=== PATIENT | female | born 1950 | race Caucasian/White ===

== ENCOUNTER → 2016-11-30 | Outpatient (CLI) | payer BC, MEDICARE ==
--- NOTE | 2016-11-30 13:03 | MM ---
Reason for exam: screening (asymptomatic). Last mammogram was performed 1 year and 1 month ago. History: Patient is postmenopausal and history of other cancer. Physical Findings: A clinical breast exam by your physician is recommended on an annual basis and results should be correlated with mammographic findings. MG 3D Screening Mammo W/Cad Bilateral CC and MLO view(s) were taken. Prior study comparison: October 19, 2015, bilateral MG screening mammo w CAD. October 14, 2014, bilateral MG screening mammo w CAD. The breast tissue is heterogeneously dense. This may lower the sensitivity of mammography. There is no discrete abnormality. ASSESSMENT: Negative, BI-RAD 1 RECOMMENDATION: Routine screening mammogram of both breasts in 1 year.
== END | disposition home or self-care (01) ==
LOC: RADMAMWWP 06:51
PROVIDERS: ATTEND Obstetrics & Gynecology
DX: Z12.31 Encounter for screening mammogram for malignant neoplasm of breast (principal)
CPT/HCPCS: 77063; G0202

== ENCOUNTER → 2016-11-30 | Outpatient (CLI) | payer BC, MEDICARE ==
--- NOTE | 2016-11-30 09:37 | BD ---
EXAMINATION TYPE: MG DEXA axial skeleton. DATE OF EXAM: 11/30/2016 7:25 AM COMPARISON: Prior DEXA bone scan October 04, 2011 CLINICAL HISTORY: Postmenopausal female Height: 64 IN Weight: 119 LB FRAX RISK QUESTIONS: Alcohol (3 or more units per day): NO Family History (Parent hip fracture): NO Glucocorticoids (More than 3mos): NO (Ex: prednisone, prednisolone, methylprednisolone, dexamethasone, and hydrocortisone). History of Fracture in Adulthood: YES LT FOOT AGE 61 Secondary Osteoporosis: 1. Type 1 Diabetes: NO 2. Hyperthyroidism: NO 3. Menopause before 45: NO 4. Malnutrition: NO 5. Chronic liver disease: NO Rheumatoid Arthritis: NO Current Tobacco Use: NO RISK FACTORS HISTORY OF: Family History of Osteoporosis: YES MOTHER Active: YES Postmenopausal woman: AGE 54 MEDICATIONS: Additional Medications: CALCIUM, VIT D, ALLERGY MED, MUSCLE RELAXER EXAM MEASUREMENTS: Bone mineral densitometry was performed using the [employer] System. Bone mineral density as measured about the Lumbar spine is: ----- L1-L4(G/cm2): 1.019 T Score Values are as follows: ----- L2: -1.2 ----- L3: -1.7 ----- L4: -1.4 ----- L1-L4: -1.3 Bone mineral density has: Decreased -0.4% since study of: 10/04/2011 Bone mineral density about the R hip (g/cm2): 0.765 Bone mineral density about the L hip (g/cm2): 0.747 T Score values are as follows: -----R Neck: -2.0 -----L Neck: -2.1 -----R Intertrochanter: -1.9 -----L Intertrochanter: -2.2 Bone mineral density has: Decreased -5.3% since study of: 10/04/2011 IMPRESSION: Osteopenia (T Score between -2.5 and -1 as noted by T score values remains present in back and both h ips. Bone density is slightly decreased or diminished from prior exam particularly at level of hips. There remains slightly increased risk of fracture and the patient may be considered for treatment. Re -Screen 1-2 years. NOTE: T-SCORE=SD OF THE YOUNG ADULT MEAN.
== END | disposition home or self-care (01) ==
LOC: RADBDWWP 06:52
PROVIDERS: ATTEND Internal Medicine Geriatric Medicine
DX: M85.852 Other specified disorders of bone density and structure, left thigh (principal); M85.851 Other specified disorders of bone density and structure, right thigh; M85.88 Other specified disorders of bone density and structure, other site
CPT/HCPCS: 77063; 77080

== ENCOUNTER → 2017-02-11 | Outpatient (CLI) | payer MEDICARE ==
--- NOTE | 2017-02-12 10:54 | ECHOF ---
Referral Reason:I50.1 Left heart failure MEASUREMENTS -------- HEIGHT: 162.6 cm WEIGHT: 54.9 kg BP: 148/65 RVIDd: 3.3 cm (< 3.3) IVSd: 0.7 cm (0.6 - 1.1) LVIDd: 3.5 cm (3.9 - 5.3) LVPWd: 0.9 cm (0.6 - 1.1) IVSs: 1.4 cm LVIDs: 1.9 cm LVPWs: 1.3 cm LA Diam: 2.9 cm (2.7 - 3.8) LAESV Index (A-L): 28.13 ml/m Ao Diam: 2.6 cm (2.0 - 3.7) AV Cusp: 1.5 cm (1.5 - 2.6) LA Diam: 2.7 cm (2.7 - 3.8) MV EXCURSION: 13.818 mm (> 18.000) MV EF SLOPE: 81 mm/s (70 - 150) EPSS: 0.2 cm MV E Edward: 0.71 m/s MV DecT: 183 ms MV A Edward: 0.69 m/s MV E/A Ratio: 1.04 RAP: 5.00 mmHg RVSP: 26.90 mmHg FINDINGS -------- Sinus rhythm. This was a technically good study. Left ventricular wall thickness is normal. Overall left ventricular systolic function is normal with, an EF between 55 - 60 %. The right ventricle is normal in size. Normal LA size by volume 22+/-6 ml/m2. The right atrium is normal in size. Aortic valve is trileaflet and is mildly thickened. There is mild aortic regurgitation. The mitral valve leaflets are mildly thickened. Mild mitral annular calcification present. There is trace mitral regurgitation. Mild tricuspid regurgitation present. The right ventricular systolic pressure, as measured by Doppler, is 26.90mmHg. Pulmonic valve appears structurally normal. The aortic root size is normal. Normal inferior vena cava with normal inspiratory collapse consistent with estimated right atrial pressure of 5 mmHg. There is no pericardial effusion. CONCLUSIONS -------- 1. Sinus rhythm. 2. The mitral valve leaflets are mildly thickened. 3. Mild mitral annular calcification present. 4. There is trace mitral regurgitation. 5. Mild tricuspid regurgitation present. 6. The right ventricular systolic pressure, as measured by Doppler, is 26.90mmHg. 7. Pulmonic valve appears structurally normal. 8. The aortic root size is normal. 9. Normal inferior vena cava with normal inspiratory collapse consistent with estimated right atrial pressure of 5 mmHg. 10. There is no pericardial effusion. 11. This was a technically good study. 12. Left ventricular wall thickness is normal. 13. Overall left ventricular systolic function is normal with, an EF between 55 - 60 %. 14. The right ventricle is normal in size. 15. Normal LA size by volume 22+/-6 ml/m2. 16. The right atrium is normal in size. 17. Aortic valve is trileaflet and is mildly thickened. 18. There is mild aortic regurgitation. SENIOR HADOOP DEVELOPER: Melanie Temple RDCS
== END | disposition home or self-care (01) ==
LOC: RADECHMAIN 16:18
PROVIDERS: ATTEND Internal Medicine Geriatric Medicine
DX: I08.3 Combined rheumatic disorders of mitral, aortic and tricuspid valves (principal)
CPT/HCPCS: 93306

== ENCOUNTER 2017-06-18 08:06 | Day surgery (SDC) | payer MEDICARE ==
[2017-06-12 09:32] VITALS: BMI 20.7
[~2017-06-18 08:06] MED LIST: LACTATED RINGERS 1,000 ML IV SCH; LIDOCAINE 1% 20 ML VIAL (10MG/ML) FOR IV START INTRADERMA PRN
[2017-06-18] MEDS: CYCLOPENTOLATE 1% OPHTH SOLN 2 ML BTL OP ONE ×3 (08:35→08:47)
[2017-06-18 08:36] VITALS: RESP 18; TEMP 97.2
[2017-06-18] MEDS: PHENYLEPHRINE 10% OPHTH DROPS 5 ML BTL OP ONE ×5 (08:37→08:49)
[2017-06-18] MEDS: KETOROLAC 0.5% OPHTH DROPS 3 ML BTL OP ONE ×4 (08:39→08:51)
[2017-06-18] MEDS ORDERED: LACTATED RINGERS 1,000 ML IV ONE (08:39)
[2017-06-18] MEDS ORDERED: PROPOFOL 10 MG/ML 20 ML VIAL IV ONE (09:49)
[2017-06-18] MEDS ORDERED: EPINEPHrine (PF) 0.5 ML in BALANCED SALT IRRIG SOLN COMB2 500 ML IRRIGATION ONE (09:51)
[2017-06-18] MEDS ORDERED: BALANCED SALT IRRIG SOLN COMB2 15 ML IRRIG.SOLN INTRAOCULA ONE (09:53)
[2017-06-18] MEDS ORDERED: HYALURONATE SODIUM INTRAOCULAR 1 EACH SYRINGE (10MG/ML) INTRAOCULA ONE (09:53)
--- NOTE | 2017-06-18 10:12 | P.OP ---
Date of Procedure: 06/18/17 Preoperative Diagnosis: Postoperative Diagnosis: Procedure(s) Performed: PREOPERATIVE DIAGNOSIS: Cataract, left eye. POSTOPERATIVE DIAGNOSIS: Cataract, left eye. OPERATION: Phacoemulsification cataract, left eye. DESCRIPTION OF PROCEDURE: The patient was taken to the preoperative holding area. Intravenous Propofol was given so as to bring about adequate sedation. The following mixture was given for local anesthesia: 5 mL of 2% lidocaine, 5 mL of 0.75% Marcaine, and 1 mL of Wydase. Approximately 4 mL was injected in the retrobulbar space of the surgical eye. Additional 1 mL was then directed to the temporal area of the surgical eye. This was performed to allow adequate neurological block of the facial muscles. The patient was revived and then taken into the operative room. The patient was prepped and draped in the usual sterile manner for the operative eye. A lid speculum was put into position. The conjunctiva was resected back from the limbus in the 12 o'clock position. Bleeding was controlled with electrocautery. A #69 blade was then used and a half-thickness scleral incision approximately 1-mm posterior to the limbus was made on bare sclera. This was shelved in the clear cornea using a crescent knife. Next a 15-degree blade was used to make a stab incision at the 3 o' clock position at the corneolimbal interface. Keratome blade was then used and the superior wound was extended into the anterior chamber. Viscoelastic was injected into the anterior chamber and to maintain its form. Next, a cystotome was used and a continuous anterior capsulotomy was made without difficulty. Hydrodissection using a blunt cannula and BSS was performed. Phaco probe was then employed and a groove extending from 12 to 6 o'clock in the lens was created. A Jean wand was used through the stab incision so as to perform a divide and conquer technique. Next an irrigation aspiration probe was utilized and any residual cortex was removed from the eye. Again, viscoelastic was injected into the anterior chamber. An [employer] posterior chamber lens implant was placed in the cartridge and injected into the anterior chamber without difficulty. The [employer] hook was utilized to spin the lens into position and this was again performed without any difficulty. The irrigation and aspiration probe was again employed and any residual viscoelastic was removed from the eye. Then BSS was injected into the limbal stab incision and the anterior chamber re-inflated. The conjunctiva was reapproximated using electrocautery. One drop of 0.25% Timoptic was placed over the corneal along with TobraDex ophthalmic ointment. Two sterile patches and a Lorenzo eye shield were taped into position. The patient was transported to the recovery room in stable condition. Implants: Pathology: none sent Condition: stable Disposition: same day Indications for Procedure: Operative Findings: Description of Procedure:
[2017-06-18 10:34] VITALS: BP 126/68; PULSE 55
[2017-06-18] MEDS ORDERED: TIMOLOL 0.5% OPHTH SOLN (PF) 0.2 ML DROPERETTE OP ONE (23:00)
[2017-06-18] MEDS ORDERED: BUPIVACAINE (PF) 0.75% 5 ML, LIDOCAINE 4% (PF) 5 ML, HYALURONIDASE, HUMAN RECOMB 150 UNIT MISCELLANE ONE ×3 (23:00)
[2017-06-18] MEDS ORDERED: GENTAMICIN/PREDNISOL AC OPHTH OINT 3.5GM OPHTHALMIC ONE (23:00)
== END 2017-06-18 10:49 | disposition home or self-care (01) ==
LOC: OR 08:06
PROVIDERS: ATTEND Ophthalmology
DX: H25.12 Age-related nuclear cataract, left eye (principal); G47.33 Obstructive sleep apnea (adult) (pediatric); K21.9 Gastro-esophageal reflux disease without esophagitis; J30.2 Other seasonal allergic rhinitis; Z79.899 Other long term (current) drug therapy; Z88.0 Allergy status to penicillin; Z88.2 Allergy status to sulfonamides
CPT/HCPCS: 66984; V2632; V2788; J2001; J3470; J0171; J2704

== ENCOUNTER → 2017-11-28 | Outpatient (CLI) | payer MEDICARE ==
--- NOTE | 2017-11-28 22:33 | MR ---
EXAMINATION TYPE: MR lumbar spine wo/w con DATE OF EXAM: 11/28/2017 COMPARISON: CT abdomen and pelvis October 09, 2016 HISTORY: LBP into buttocks x 1 year, no trauma/surgery per patient. Sciatica unspecified site per ord er. TECHNIQUE: Multiplanar, multisequence images of the lumbar spine is performed without and with IV contrast, util izing 5.5 mL intravenous Gadavist FINDINGS: Sagittal images of the lumbar spine show vertebral body heights to remain satisfactory. The re is persistent grade 1 anterolisthesis of L4 on L5 measured 8 mm from posterior vertebral body jake in on sagittal image 7. Multilevel disc desiccation is present. There is moderate to advanced disc sp vanessa narrowing L4-L5 level redemonstrated. Multilevel posterior disc herniations are seen on sagittal images. The conus medullaris is normal in position and signal ending mid L1 level. There is heterogen eous endplate changes L4-L5 level. No significant spurring is seen. No suspicious enhancement is note d. Axial images at T12-L1 level shows mild facet degenerative changes and ligament flavum hypertrophy ef facing posterior lateral thecal sac on axial image 30. Bilateral neural foramina are patent. Axial images at the L1-L2 level show mild broad disc bulge mildly effacing the anterior thecal sac. T he bilateral neural foramina are patent. Axial images at L2-L3 level shows broad-based posterior disc protrusion mildly facing anterior thecal sac. Bilateral neural foramina are patent. Axial images at L3-L4 level mild/moderate facet degenerative changes and ligamentum flavum hypertroph y effacing posterior lateral thecal sac. There is mild broad disc bulge effacing anterior thecal sac on axial image 15. There is mild left greater than right anterior inferior neural foraminal narrowing at this level identified. Axial images at the L4-L5 level show spondylolisthesis causing pseudodisc herniation as well as broad disc bulge. There is moderate to advanced facet degenerative changes bilaterally. Most prominent spi nal canal stenosis seen at this level on sagittal image 9. There is moderate to advanced right and mi [id number] left-sided neural foraminal narrowing at this level seen. Encroachment on right L4 ner ve is felt present on sagittal image 11 and axial image 9. Axial images at L5-S1 level show moderate left greater than right facet degenerative changes. There i s central disc protrusion minimally effacing the anterior thecal sac. Bilateral neural foramina are p atent. No suspicious retroperitoneal findings are seen. No suspicious enhancement is noted. IMPRESSION: Multilevel degenerative changes in the lumbar spine as detailed above, most prominent fin dings L4-L5 level where spondylolisthesis causes most prominent spinal canal stenosis and along with degenerative changes there is felt to effacement of the right L4 nerve.
== END | disposition home or self-care (01) ==
LOC: RADMRIMAIN 19:59
PROVIDERS: ATTEND Internal Medicine Geriatric Medicine
DX: M48.061 Spinal stenosis, lumbar region without neurogenic claudication (principal); M43.16 Spondylolisthesis, lumbar region; M47.817 Spondylosis without myelopathy or radiculopathy, lumbosacral region
CPT/HCPCS: 82565; 72158; 36415; A9581

== ENCOUNTER → 2017-12-13 | Outpatient (CLI) | payer MEDICARE, OTHER ==
--- NOTE | 2017-12-16 11:02 | MM ---
Reason for exam: screening (asymptomatic). Last mammogram was performed 1 year ago. History: Patient is postmenopausal and history of other cancer. Physical Findings: A clinical breast exam by your physician is recommended on an annual basis and results should be correlated with mammographic findings. MG 3D Screening Mammo W/Cad Bilateral CC and MLO view(s) were taken. Prior study comparison: November 30, 2016, bilateral MG 3d screening mammo w/cad. October 19, 2015, bilateral MG screening mammo w CAD. The breast tissue is heterogeneously dense. This may lower the sensitivity of mammography. There is no discrete abnormality. ASSESSMENT: Negative, BI-RAD 1 RECOMMENDATION: Routine screening mammogram of both breasts in 1 year.
== END | disposition home or self-care (01) ==
LOC: RADMAMWWP 06:53
PROVIDERS: ATTEND Internal Medicine Geriatric Medicine
DX: Z12.31 Encounter for screening mammogram for malignant neoplasm of breast (principal)
CPT/HCPCS: 77063; 77067

== ENCOUNTER → 2018-07-25 | Outpatient (CLI) | payer MEDICARE ==
--- NOTE | 2018-07-25 18:48 | XR ---
EXAMINATION TYPE: XR lumbar spine with bend/flex DATE OF EXAM: 07/25/2018 COMPARISON: NONE HISTORY: Back pain TECHNIQUE: 7 views FINDINGS: Multiple film exam including obliques and flexion and extension views show anterior subluxa tion of L4 in relation L5. There is no spondylolysis. There is narrowing of L4-5 disc space. There is no compression fracture. Sacroiliac joints appear intact. The subluxation is 8 mm in extension and 1 0 mm in flexion. IMPRESSION: There is only 2 mm movement of the first-degree L4-5 spondylolisthesis with the flexion-e xtension views. Subluxation is stable compared to CT scan of 10/09/2016.
--- NOTE | 2018-07-25 18:49 | XR ---
EXAMINATION TYPE: XR chest 2V DATE OF EXAM: 07/25/2018 COMPARISON: 02/13/2010 HISTORY: Preop TECHNIQUE: Frontal and lateral views of the chest are obtained. FINDINGS: Heart and mediastinum are normal. Lungs are clear. Costophrenic angles are clear. Bony tho rax is intact. IMPRESSION: Normal chest. No change.
== END | disposition home or self-care (01) ==
LOC: RADXRMAIN 16:33
PROVIDERS: ATTEND Neurological Surgery
DX: M43.16 Spondylolisthesis, lumbar region (principal)
CPT/HCPCS: 71046; 72114

== ENCOUNTER → 2018-12-16 | Outpatient (CLI) | payer MEDICARE ==
--- NOTE | 2018-12-16 11:01 | BD ---
EXAMINATION TYPE: Axial Bone Density DATE OF EXAM: 12/16/2018 COMPARISON: 2017 CLINICAL HISTORY: screening osteoporosis Height: 5'4 Weight: 131 FRAX RISK QUESTIONS: History of Fracture in Adulthood: y Secondary Osteoporosis: RISK FACTORS HISTORY OF: Surgery to Spine/): L4-L5 When: 2018 Family History of Osteoporosis: Y MEDICATIONS: Additional Medications: allergy, incontinence Additional History: EXAM MEASUREMENTS: Bone mineral densitometry was performed using the [employer] System. Bone mineral density about the R hip (g/cm2): 0.771 Bone mineral density about the L hip (g/cm2): 0.742 T Score values are as follows: -----R Neck: -2.1 -----L Neck: -1.9 -----R Total: -1.6 -----L Total: -1.6 Bone mineral density has: Increased 0.5% since study of: 11/30/2016 Bone mineral density about the L Wrist (g/cm2): 0.484 T Score values are as follows: -----Dist. R+U: -3.3 -----Prox. R+U: -2.2 -----Radius total: -3.2 IMPRESSION: Osteoporosis (T Score less than -2.5). There is increased fracture risk and therapy is usually indicated based on age. Re-Screen 1-2 years. NOTE: T-SCORE=SD OF THE YOUNG ADULT MEAN.
--- NOTE | 2018-12-17 08:37 | MM ---
Reason for exam: screening (asymptomatic). Last mammogram was performed 1 year ago. History: Patient is postmenopausal and history of other cancer. Physical Findings: A clinical breast exam by your physician is recommended on an annual basis and results should be correlated with mammographic findings. MG 3D Screening Mammo W/Cad Bilateral CC and MLO view(s) were taken. Prior study comparison: December 13, 2017, bilateral MG 3d screening mammo w/cad. November 30, 2016, bilateral MG 3d screening mammo w/cad. The breast tissue is heterogeneously dense. This may lower the sensitivity of mammography. No suspicious abnormality. No significant changes when compared with prior studies. ASSESSMENT: Negative, BI-RAD 1 RECOMMENDATION: Routine screening mammogram of both breasts in 1 year.
== END ==
LOC: RADMAMWWP 08:15
PROVIDERS: ATTEND Internal Medicine Geriatric Medicine
DX: Z12.31 Encounter for screening mammogram for malignant neoplasm of breast (principal); M81.0 Age-related osteoporosis without current pathological fracture
CPT/HCPCS: 77063; 77067; 77080

== ENCOUNTER → 2019-04-21 | Outpatient (CLI) | payer MEDICARE | END | disposition home or self-care (01) | LOC: LABWHC1 08:48 | PROVIDERS: ATTEND Otolaryngology | DX: L50.0 Allergic urticaria (principal); J30.89 Other allergic rhinitis; B44.89 Other forms of aspergillosis | CPT/HCPCS: 36415; 86001 ==

== ENCOUNTER → 2019-08-26 | Outpatient (CLI) | payer MEDICARE ==
--- NOTE | 2019-08-26 13:28 | XR ---
EXAMINATION TYPE: XR lumbar spine with bend/flex DATE OF EXAM: 08/26/2019 CLINICAL HISTORY: Fusion at L4-L5 last year with back pain for one week. TECHNIQUE: Frontal, oblique, lateral neutral, lateral flexion, and lateral extension images of the penelope mbar spine were obtained. COMPARISON: X-ray of the lumbar spine dated 07/17/2018. FINDINGS: There are 5 lumbar type vertebral bodies. Surgical fixation of L4-L5 is seen with pedicular screws, fixation rods and intervertebral disc age. Surgical excision of the posterior elements at th jen levels. Oblique images demonstrate no gross evidence of pars interarticularis defect. Vertebral b joaquín heights are overall maintained. Small osteophytes of the lumbar spine particularly at L1-L2. In n eutral on the lateral view there is grade 1 anterolisthesis of L4 on L5, surgically fixated. No bowling e is seen in flexion or extension. Intervertebral disc space narrowing is noted at L5-S1. IMPRESSION: 1. No acute fracture is seen in the lumbar spine. 2. Grade 1 anterolisthesis with surgical fixation at L4-L5. 3. Mild multilevel degenerative disc disease of the lumbar spine.
== END | disposition home or self-care (01) ==
LOC: RADXRMAIN 12:29
PROVIDERS: ATTEND Internal Medicine Geriatric Medicine
DX: M43.16 Spondylolisthesis, lumbar region (principal); M51.36 Other intervertebral disc degeneration, lumbar region; Z98.1 Arthrodesis status
CPT/HCPCS: 72114

== ENCOUNTER → 2020-01-05 | Outpatient (CLI) | payer MEDICARE ==
--- NOTE | 2020-01-06 12:11 | MM ---
Reason for exam: screening (asymptomatic). Last mammogram was performed 1 year and 1 month ago. History: Patient is postmenopausal and history of other cancer. Physical Findings: A clinical breast exam by your physician is recommended on an annual basis and results should be correlated with mammographic findings. MG 3D Screening Mammo W/Cad Bilateral CC and MLO view(s) were taken. Prior study comparison: December 16, 2018, bilateral MG 3d screening mammo w/cad. December 13, 2017, bilateral MG 3d screening mammo w/cad. The breast tissue is heterogeneously dense. This may lower the sensitivity of mammography. No suspicious abnormality. No significant changes when compared with prior studies. ASSESSMENT: Negative, BI-RAD 1 RECOMMENDATION: Routine screening mammogram of both breasts in 1 year.
== END | disposition home or self-care (01) ==
LOC: RADMAMWWP 07:38
PROVIDERS: ATTEND Internal Medicine Geriatric Medicine
DX: Z12.31 Encounter for screening mammogram for malignant neoplasm of breast (principal)
CPT/HCPCS: 77063; 77067

== ENCOUNTER → 2021-01-25 | Outpatient (CLI) | payer MEDICARE ==
--- NOTE | 2021-01-27 11:03 | MM ---
Reason for exam: screening (asymptomatic). Last mammogram was performed 1 year and 1 month ago. History: Patient is postmenopausal and history of other cancer. Physical Findings: A clinical breast exam by your physician is recommended on an annual basis and results should be correlated with mammographic findings. MG 3D Screening Mammo W/Cad Bilateral CC and MLO view(s) were taken. Prior study comparison: January 05, 2020, bilateral MG 3d screening mammo w/cad. December 16, 2018, bilateral MG 3d screening mammo w/cad. The breast tissue is extremely dense which could obscure a lesion on mammography. No significant changes when compared with prior studies. ASSESSMENT: Benign, BI-RAD 2 RECOMMENDATION: Routine screening mammogram of both breasts in 1 year.
== END | disposition home or self-care (01) ==
LOC: RADMAMWWP 16:30
PROVIDERS: ATTEND Internal Medicine Geriatric Medicine
DX: Z12.31 Encounter for screening mammogram for malignant neoplasm of breast (principal); Z78.0 Asymptomatic menopausal state
CPT/HCPCS: 77063; 77067

== ENCOUNTER → 2021-11-07 | Outpatient (CLI) | payer MEDICARE ==
[~2021-11-07] MED LIST changes: +CASIRIVIMAB (REGN10933) (EUA) 600 MG, IMDEVIMAB (REGN10987) (EUA) 600 MG in SODIUM CHLO... IVPB NR; -LACTATED RINGERS 1,000 ML IV SCH; -LIDOCAINE 1% 20 ML VIAL (10MG/ML) FOR IV START INTRADERMA PRN; +SODIUM CHLORIDE 0.9% 50 ML IVPB NR; +SODIUM CHLORIDE 0.9% 500 ML 500 ML in EMPTY BAG 1 BAG IV PRN
[2021-11-07 15:27] VITALS: RESP 16; TEMP 99.4
[2021-11-07 16:01] VITALS: BP 125/84; PULSE 82
== END ==
LOC: PROCWHC3 13:55
PROVIDERS: ATTEND Internal Medicine Geriatric Medicine
DX: U07.1 COVID-19 (principal); Z88.0 Allergy status to penicillin; Z88.2 Allergy status to sulfonamides
CPT/HCPCS: 96360; Q0244; M0243

== ENCOUNTER → 2022-03-06 | Outpatient (CLI) | payer MEDICARE ==
--- NOTE | 2022-03-06 22:27 | BD ---
EXAMINATION TYPE: Axial Bone Density DATE OF EXAM: 03/06/2022 CLINICAL HISTORY: 71 years year old Female. ICD-10 CODE: Z13.820 osteoporosis screening Height: 5 FT 4 1/4 IN Weight: 129 FRAX RISK QUESTIONS: Alcohol (3 or more units per day): NO Family History (Parent hip fracture): NO Glucocorticoids (More than 3mos): NO (Ex: prednisone, prednisolone, methylprednisolone, dexamethasone, and hydrocortisone). History of Fracture in Adulthood: YES Secondary Osteoporosis: 1. Type 1 Diabetes: NO 2. Hyperthyroidism: NO 3. Menopause before 45: NO 4. Malnutrition: NO 5. Chronic liver disease: NO Rheumatoid Arthritis: NO Current Tobacco Use: NO RISK FACTORS HISTORY OF: Surgery to Spine/Hip(right/left)/Wrist (right/left): LUMBAR SURG FUSION When: 2018 Family History of Osteoporosis: YES Active: YES Diet low in dairy products/other sources of calcium: NO Postmenopausal woman: YES Take estrogen and/or progesterone medications: NO Lost more than 2 inches in height since high school: NO Frequent falls: NO Poor Health: GOOD Hyperparathyroidism: NO Adrenal Insufficiency: NO MEDICATIONS: Additional Medications: ALLERGY MEDS, ACID REFLUX MEDS Additional History: EXAM MEASUREMENTS: Bone mineral density about the R hip (g/cm2): 0.708 Bone mineral density about the L hip (g/cm2): 0.715 T Score values are as follows: -----R Neck: -2.4 -----L Neck: -2.3 -----R Total: -2.1 -----L Total: -2.0 Bone mineral density has: DECREASED -7.1 % since study of: 2018 Bone mineral density about the L Wrist (g/cm2): 0.476 T Score values are as follows: -----Dist. R+U: -3.3 -----Prox. R+U: -2.7 -----Radius total: -3.3 Bone mineral density has: DECREASED -5.4 % since study of: 2019 FRAX%s: The graph provided illustrates a 20.5 % chance for a major osteoporotic fx and a 5.1 % chance for the hips probability for fx in 10 years time. IMPRESSION: Osteoporosis (T Score less than -2.5). There is increased fracture risk and therapy is usually indicated based on age. Re-Screen 1-2 years. NOTE: T-SCORE=SD OF THE YOUNG ADULT MEAN.
--- NOTE | 2022-03-08 08:47 | MM ---
Reason for exam: screening (asymptomatic). Last mammogram was performed 1 year and 1 month ago. History: Patient is postmenopausal and has history of other cancer at age 66. Physical Findings: A clinical breast exam by your physician is recommended on an annual basis and results should be correlated with mammographic findings. MG 3D Screening Mammo W/Cad Bilateral CC and MLO view(s) were taken. Prior study comparison: January 25, 2021, bilateral MG 3d screening mammo w/cad. January 05, 2020, bilateral MG 3d screening mammo w/cad. The breast tissue is heterogeneously dense. This may lower the sensitivity of mammography. No significant changes when compared with prior studies. ASSESSMENT: Benign, BI-RAD 2 RECOMMENDATION: Routine screening mammogram of both breasts in 1 year.
== END | disposition home or self-care (01) ==
LOC: RADMAMWWP 07:52
PROVIDERS: ATTEND Internal Medicine Geriatric Medicine
DX: Z12.31 Encounter for screening mammogram for malignant neoplasm of breast (principal); M81.0 Age-related osteoporosis without current pathological fracture; Z78.0 Asymptomatic menopausal state
CPT/HCPCS: 77063; 77067; 77080

== ENCOUNTER → 2023-03-28 | Outpatient (CLI) | payer MEDICARE ==
--- NOTE | 2023-03-29 06:48 | MM ---
Reason for Exam: Screening (asymptomatic). Last mammogram was performed 1 year(s) and 1 month(s) ago. Patient History: Menarche at age 13. First Full-Term at age 27. Postmenopausal. Other cancer, age 66. Risk Values: Lory 5 year model risk: 1.9%. NCI Lifetime model risk: 5.4%. Prior Study Comparison: 01/05/2020 Bilateral Screening Mammogram, [facility]. 01/25/2021 Bilateral Screening Mammogram, [facility]. 03/06/2022 Bilateral Screening Mammogram, [facility]. Tissue Density: The breast tissue is heterogeneously dense. This may lower the sensitivity of mammography. Findings: Analyzed By CAD. There is no suspicious group of microcalcifications or new suspicious mass in either breast. Overall Assessment: Negative, BI-RAD 1 Management: Screening Mammogram of both breasts in 1 year. . Patient should continue monthly self-breast exams. A clinical breast exam by your physician is recommended on an annual basis. This exam should not preclude additional follow-up of suspicious palpable abnormalities. Note on Lory scores and lifetime risk: 1. A Lory score greater than 3% is considered moderate risk. If this is the case, consider specialist referral to assess eligibility for a risk reducing agent. 2. If overall lifetime risk for the development of breast cancer is 20% or higher, the patient may qualify for future screening with alternating mammogram and breast MRI. Electronically signed and approved by: James Black M.D.
== END | disposition home or self-care (01) ==
LOC: RADMAMWWP 14:27
PROVIDERS: ATTEND Internal Medicine Geriatric Medicine
DX: Z12.31 Encounter for screening mammogram for malignant neoplasm of breast (principal); Z78.0 Asymptomatic menopausal state
CPT/HCPCS: 77063; 77067

== ENCOUNTER → 2024-03-30 | Outpatient (CLI) | payer MEDICARE ==
--- NOTE | 2024-03-31 16:16 | MM ---
Reason for Exam: Screening (asymptomatic). Last screening mammogram was performed 12 month(s) ago. Patient History: Menarche at age 13. First Full-Term at age 27. Postmenopausal. Other cancer, age 66. Risk Values: Lory 5 year model risk: 2.0%. NCI Lifetime model risk: 5.1%. Prior Study Comparison: 01/25/2021 Bilateral Screening Mammogram, [facility]. 03/06/2022 Bilateral Screening Mammogram, [facility]. 03/28/2023 Bilateral MG 3D screening mammo w/cad, [facility]. Tissue Density: The breasts are heterogeneously dense, which may obscure small masses. Findings: Analyzed By CAD. There is no suspicious group of microcalcifications or new suspicious mass in either breast. Overall Assessment: Negative, BI-RAD 1 Management: Screening Mammogram of both breasts in 1 year. . Patient should continue monthly self-breast exams. A clinical breast exam by your physician is recommended on an annual basis. This exam should not preclude additional follow-up of suspicious palpable abnormalities. Note on Lory scores and lifetime risk: 1. A Lory score greater than 3% is considered moderate risk. If this is the case, consider specialist referral to assess eligibility for a risk reducing agent. 2. If overall lifetime risk for the development of breast cancer is 20% or higher, the patient may qualify for future screening with alternating mammogram and breast MRI. Electronically signed and approved by: Raleigh Jj M.D. Radiologist
== END | disposition home or self-care (01) ==
LOC: RADMAMWWP 12:16
PROVIDERS: ATTEND Internal Medicine Geriatric Medicine
DX: Z12.31 Encounter for screening mammogram for malignant neoplasm of breast (principal); Z78.0 Asymptomatic menopausal state
CPT/HCPCS: 77063; 77067

== ENCOUNTER → 2024-04-02 | Outpatient (CLI) | payer MEDICARE ==
--- NOTE | 2024-04-02 19:32 | XR ---
EXAMINATION TYPE: XR Hip Complete 2 views RT DATE OF EXAM: 04/02/2024 Comparison: None Clinical History: 73-year-old female [id number] PAIN IN RIGHT HIP Findings: Punctate calcification along the lateral right acetabular margin may represent degenerative labral os sification. Joint space is relatively maintained. No acute fracture, subluxation or dislocation. Impression: There may be some punctate degenerative labral ossification. Otherwise, no acute osseous abnormality seen.
== END | disposition home or self-care (01) ==
LOC: RADXRMAIN 14:04
PROVIDERS: ATTEND Internal Medicine Geriatric Medicine
DX: M25.551 Pain in right hip (principal)
CPT/HCPCS: 73502

== ENCOUNTER → 2024-04-07 | Outpatient (CLI) | payer MEDICARE ==
--- NOTE | 2024-04-07 18:28 | MR ---
EXAMINATION TYPE: MR lumbar spine wo con DATE OF EXAM: 04/07/2024 COMPARISON: NONE HISTORY: Low back pain into right side after a fall 4 weeks ago, Hx back surgery Aug 2018 TECHNIQUE: Multiplanar, multisequence imaging of the lumbar spine is performed without IV contrast. FINDINGS: Sagittal images of the lumbar spine show vertebral body heights to appear satisfactory. The re is grade 1 retrolisthesis L2 on L3 and slight grade 1 anterolisthesis L4 on L5. Multilevel disc de siccation. There is artifact from surgical disc and bilateral posterior interpedicular rods and screw s at the L4-L5 level. Posterior decompression changes are present in the lower lumbar spine. Mild mul tilevel disc space narrowing. The conus medullaris is normal in position and signal ending superior L 1 level. Small osseous hemangioma at the L2 vertebra sagittal image 7 incidentally noted. Axial images show T12-L1 level to appear within normal limits. Axial images at L1-L2 level show mild broad disc bulge mildly effaces the anterior thecal sac. Patent bilateral neural foramina. Axial images at L2-L3 level show spondylolisthesis and moderate broad disc bulge with left foraminal disc protrusion component effacing anterior thecal sac and causing mild left-sided anterior inferior neural foraminal narrowing. Right-sided neural foramina is mildly narrowed. Axial images at L3-L4 level shows mild broad-based posterior disc protrusion mildly effacing the ante rior thecal sac. Artifact from surgical hardware is seen. There is [id number] bilateral neural foraminal narrowing noted. There is mild bilateral facet arthropathy. Axial images at L4-L5 level show spondylolisthesis. There is artifact from surgical change. There are bilateral laminectomy defects and spinous process resection. Spinal canal is preserved. Bilateral ne ural foramina are likely patent. Axial images at L5-S1 level show mild to moderate facet arthropathy bilaterally. Spinal canal is pres erved. Bilateral neural foramina are patent. IMPRESSION: Successful posterior decompression surgery in the lower lumbar spine. There is multilevel spondylolisthesis and degenerative change of the lumbar spine appreciated as detailed above.
== END | disposition home or self-care (01) ==
LOC: RADMRIMAIN 16:37
PROVIDERS: ATTEND Internal Medicine Geriatric Medicine
DX: M47.816 Spondylosis without myelopathy or radiculopathy, lumbar region (principal); M43.16 Spondylolisthesis, lumbar region; M48.061 Spinal stenosis, lumbar region without neurogenic claudication
CPT/HCPCS: 72148